=== PATIENT | female | born 1995 | race Caucasian/White ===

== ENCOUNTER 2018-06-30 14:15 | Emergency (ER) | payer OTHER ==
[~2018-06-30] VITALS: Ht 154.9 cm; Wt 48.1 kg
[2018-06-30] MEDS ORDERED: SODIUM CHLORIDE 0.9% 1000ML 1,000 ML IV SCH (15:00)
[2018-06-30] MEDS ORDERED: ONDANSETRON HCL 4 MG ORAL DISINTEGRATING TAB PO STA (15:00)
[2018-06-30] MEDS ORDERED: SODIUM CHLORIDE 0.9% 1000 ML BAG IV STA (16:08)
[2018-06-30 16:41] VITALS: BP 118/77
== END 2018-06-30 16:59 | disposition home or self-care (01) ==
LOC: FSED 14:15
DX: R10.9 Unspecified abdominal pain (principal); R11.2 Nausea with vomiting, unspecified; K52.9 Noninfective gastroenteritis and colitis, unspecified
CPT/HCPCS: 80048; 80076; 81003; 81025; 85025; 99284; J7030; Q0162